=== PATIENT | male | born 2000 | race Asian ===

== ENCOUNTER 2021-10-12 18:17 | Emergency (ER) | payer OTHER, SELFPAY ==
[2021-10-12 18:48] VITALS: BP 127/73; PULSE 80; RESP 12; TEMP 36.8; O2SAT 100; BMI 26.2
--- NOTE | 2021-10-12 20:35 | ED.GENADULT ---
HPI - General Adult General Chief complaint: Eye Problems Stated complaint: Left Eye Red, Post Lasek Time Seen by Provider: 10/12/21 20:27 Source: patient Mode of arrival: Ambulatory History of Present Illness HPI narrative: Patient is a 21-year-old male. Has had a history of LASIK eye surgery. States that over the past 24 hours he has had some redness and discomfort to his left eye. No foreign body sensation but does have some pressure. No vision changes. No foreign body sensation. No fevers. No right eye symptoms. Has not tried anything for the symptoms. Wanted to be evaluated for the concern of issues related to the LASIK. Related Data Previous Rx's Medication Instructions Recorded erythromycin 5 mg/gram (0.5 %) eye 0.5 inch EYE-LEFT TID #3.5 g 10/12/21 ointment Allergies Allergy/AdvReac Type Severity Reaction Status Date / Time No Known Drug Allergies Allergy Verified 10/12/21 18:50 Review of Systems Eyes Eyes: Reports as per HPI and Reports system reviewed and no additional complaints, except as documented ENT Ears, Nose, Mouth, and Throat: Reports system reviewed and no additional complaints, except as documented and Reports as per HPI Neurologic Neurologic: Reports system reviewed and no additional complaints, except as documented Hematologic/Lymphatic On Anticoagulants: No Patient History Medical History Healthy adult Social History Smoking Status: Current every day smoker Smoking Status: Current every day smoker Substance Use Type: does not use Exam Initial Vital Signs Initial Vital Signs: Vital Signs Temperature 98.3 F 10/12/21 18:48 Pulse Rate 80 10/12/21 18:48 Respiratory Rate 12 10/12/21 18:48 Blood Pressure 127/73 10/12/21 18:48 Pulse Oximetry 100 10/12/21 18:48 HENME Head: normal to inspection and normocephalic Nose: external nose normal Face and sinus: normal facial exam Mouth: oral mucosae normal Eyes Periorbital: periorbital findings normal Eyelids: eyelids normal Conjunctivae: conjunctival abnormality left conjunctival chemosis (Left, nasal aspect) Sclera: scleral abnormality left Negative for without hemorrhages and without scleral injection Cornea: corneas normal and fluorescein used Pupils: PERRL EOM: EOM intact bilaterally Resp Effort & Inspection: normal respiratory effort Skin General: no rashes or lesions noted Neuro General: patient alert, patient awake and moves all extremities Extrem General: normal to inspection and capillary refill normal Course Orders Ordered: Discontinued Medications Erythromycin (Erythromycin Ophth 1 Gm Oint) 1 applic EYE-LEFT NOW ONE Stop: 10/12/21 20:56 Last Admin: 10/12/21 20:59 Dose: 1 applic Documented by: MARIA L Fluorescein Sodium (Fluorescein 1 Mg Strip) 1 mg EYE-BOTH NOW ONE Stop: 10/12/21 20:36 Last Admin: 10/12/21 20:42 Dose: 1 mg Documented by: MARIA L Proparacaine HCl (Proparacaine 0.5% Ophth Jaylyn) 1 drops EYE-LEFT NOW ONE Stop: 10/12/21 20:36 Last Admin: 10/12/21 20:41 Dose: 1 drop Documented by: MARIA L Vital Signs Vital signs: Vital Signs - 8 hr 10/12/21 18:48 Temperature 98.3 F Pulse Rate 80 Respiratory Rate 12 Blood Pressure 127/73 Pulse Oximetry 100 Medical Decision Making MDM Narrative Medical decision making narrative: Patient does have no signs of foreign body. There is no uptake the for seen. Does have chemosis on the nasal aspect of the left eye. Do suspect irritation. No signs of open globe. Will send home with erythromycin ointment for both the soothing aspect of it also the antibiotic coverage. The does not appear to be any issues with the LASIK flap. He was given return precautions and follow-up instructions. He expressed understanding and agreement. Discharge Plan Departure Patient Disposition: Home Clinical Impression: Chemosis of left conjunctiva Instructions: DI for Red Eye Activity Restrictions/Additional Instructions: Continue to use the antibiotic ointment as directed into your symptoms have improved. Contact your primary provider for a follow-up. Return to the emergency department for any new or worsening symptoms Prescriptions: New erythromycin 5 mg/gram (0.5 %) ointment 0.5 inch EYE-LEFT TID Qty: 3.5 0RF Stand Alone Forms: Work Release Note
[2021-10-12] MEDS: PROPARACAINE 0.5% OPHTH SOL 1 DROPS EYE-LEFT (20:41)
[2021-10-12] MEDS: FLUORESCEIN 1 MG STRIP EYE-BOTH (20:42)
[2021-10-12] MEDS: ERYTHROMYCIN OPHTH 1 GM OINT 1 APPLIC EYE-LEFT (20:59)
== END 2021-10-12 21:04 | disposition home or self-care (01) ==
PROVIDERS: Emergency Provider Emergency Medicine
DX: H11.422 Conjunctival edema, left eye (principal)
CPT/HCPCS: 99282